=== PATIENT | female | born 1980 | race American Indian/Alaskan Native ===

== ENCOUNTER 2017-03-05 21:13 | Emergency (ER) | payer MEDICAID ==
[2017-03-05 21:28] VITALS: BP 136/87
[2017-03-05 22:27] LABS: Basophils % (Auto) 0.9 % (0.0-1.8); Eosinophils % (Auto) 2.5 % (0.0-4.3); Hematocrit 44.6 % (30.3-42.9); Hemoglobin 14.8 gm/dl (10.1-14.3); Mean Corpuscular HGB Conc 33 % (30-34); Mean Corpuscular Hemoglobin 32 pg (28-32); Mean Corpuscular Volume 95 fl (79-97); Platelet Count 279 K/mm3 (140-440); Red Blood Count 4.69 M/mm3 (3.65-5.03); Red Cell Distribution Width 13.4 % (13.2-15.2); White Blood Count 11.6 K/mm3 (4.5-11.0)
[2017-03-05 22:45] LABS: Amylase 71 units/L (27-131); Lipase 24 units/L (13-60)
--- NOTE | 2017-03-07 14:30 | ED Elopement Review ---
ED Pt Elopement review - Results review Lab results: Laboratory Tests 03/05/17 03/05/17 03/05/17 21:45 21:45 21:45 WBC 11.6 H RBC 4.69 Hgb 14.8 H Hct 44.6 H MCV 95 MCH 32 MCHC 33 RDW 13.4 Plt Count 279 Lymph % (Auto) 23.6 [place] % (Auto) 7.6 H Eos % (Auto) 2.5 Baso % (Auto) 0.9 Lymph # 2.7 [place] # 0.9 H Eos # 0.3 Baso # 0.1 Seg Neutrophils % 65.4 Seg Neutrophils # 7.6 Amylase 71 Lipase 24 HCG, Qual Negative - Call Back decision Pt Call Back Decision: Pt to F/U with PMD
== END 2017-03-06 00:52 | disposition left against medical advice (07) ==
LOC: ED 21:13
DX: R10.9 Unspecified abdominal pain (principal); M54.9 Dorsalgia, unspecified; J45.909 Unspecified asthma, uncomplicated; Z53.21 Procedure and treatment not carried out due to patient leaving prior to being seen by health care provider
CPT/HCPCS: 36415; 82150; 83690; 84703; 85025